=== PATIENT | female | born 1955 | race Caucasian/White ===

== ENCOUNTER 2017-01-11 21:32 | Emergency (ER) | payer OTHER ==
[2017-01-11 23:35] LABS: BASOPHIL 0.6 % (0-2); EOSINOPHIL 1.3 % (0-5); HGB 10.3 g/dl (12.5-16.0); LYMPHOCYTE 39.1 % (15-48); MCH 30.5 pg (25.0-31.0); MCHC 33.2 g/dL (32.0-36.0); MCV 91.7 fL (78.0-100.0); MPV 10.4 fL (6.0-9.5); PLT 169 K/uL (150-400); RBC 3.38 M/uL (4.20-5.40); RDW 17.7 % (11.5-14.0)
[2017-01-11 23:50] LABS: ALBUMIN 2.5 g/dL (3.5-5.0); BILIRUBIN - TOTAL 0.6 mg/dL (0.1-1.0); CREATININE 0.7 mg/dL (0.5-1.0); GLOBULIN (CALCULATION) 2.5 g/dL (2.2-4.2); POTASSIUM 4.1 mmol/L (3.5-5.1)
== END 2017-01-12 00:37 | disposition home or self-care (01) ==
LOC: FER 21:32
PROVIDERS: Emergency Medicine
DX: R60.0 Localized edema (principal); C25.9 Malignant neoplasm of pancreas, unspecified; Z88.5 Allergy status to narcotic agent; Z98.890 Other specified postprocedural states
CPT/HCPCS: 36415; 73090; 80053; 85025; 93971

== ENCOUNTER 2017-01-28 09:21 | Emergency (ER) | payer OTHER ==
[2017-01-28 10:41] LABS: BILIRUBIN NEGATIVE (NEGATIVE); BLOOD NEGATIVE Ery/uL (NEGATIVE); CLARITY CLEAR (CLEAR); COLOR YELLOW (YELLOW); GLUCOSE (U) NORMAL (NORMAL); KETONE (U) TRACE mg/dL (NEGATIVE); LEUKOCYTES TRACE Leu/uL (NEGATIVE); NITRITE NEGATIVE (NEGATIVE); PROTEIN NEGATIVE (NEGATIVE); SPECIFIC GRAVITY 1.015 (1.001-1.030); UROBILINOGEN 0.2 mg/dL (0.2-1.0)
[2017-01-28 10:43] LABS: AMORPHOUS URATES CRYSTALS TRACE; SQUAMOUS EPITHELIAL CELLS RARE; URINARY RBC RARE; URINARY WBC RARE
[2017-01-28 14:21] LABS: BASOPHIL 0.1 % (0-2); EOSINOPHIL 0.1 % (0-5); HCT 28.4 % (37.0-47.0); HGB 9.6 g/dl (12.5-16.0); LYMPHOCYTE 19.4 % (15-48); MCH 29.4 pg (25.0-31.0); MCHC 33.8 g/dL (32.0-36.0); MCV 86.9 fL (78.0-100.0); MONOCYTE 6.9 % (0-12); MPV 10.1 fL (6.0-9.5); NEUTROPHIL 73.5 % (41-80); PLT 225 K/uL (150-400); RBC 3.27 M/uL (4.20-5.40); WBC 9.3 K/uL (4.0-10.5)
[2017-01-28 14:36] LABS: ALBUMIN 2.5 g/dL (3.5-5.0); BILIRUBIN - TOTAL 1.7 mg/dL (0.1-1.0); CREATININE 0.7 mg/dL (0.5-1.0); GLOBULIN (CALCULATION) 2.6 g/dL (2.2-4.2); MAGNESIUM 1.8 mg/dL (1.40-2.10); POTASSIUM 3.4 mmol/L (3.5-5.1); TOTAL PROTEIN 5.1 g/dL (6.4-8.3)
[2017-01-28 14:39] LABS: LACTIC ACID 1.1 mmol/L (0.5-2.2)
== END 2017-01-29 08:51 | disposition other institution (70) ==
LOC: FER 09:21
PROVIDERS: Internal Medicine
DX: R41.82 Altered mental status, unspecified (principal); R63.0 Anorexia; R10.9 Unspecified abdominal pain; G89.29 Other chronic pain; K21.9 Gastro-esophageal reflux disease without esophagitis; Z85.07 Personal history of malignant neoplasm of pancreas; Z88.5 Allergy status to narcotic agent; Z91.81 History of falling
CPT/HCPCS: 36415; 70450; 71010; 80053; 81001; 83605; 83690; 83735; 84484; 85025; 93005; J1170; J2060; J2405; Q9967